=== PATIENT | male | born 1985 | race Caucasian/White ===

== ENCOUNTER 2017-02-23 14:49 | Inpatient (IN) | payer MEDICAID ==
[~2017-02-23] VITALS: Ht 185.4 cm; Wt 128.1 kg
[2017-02-23 15:38] LABS: Basophils # (auto) 0 uL; Basophils % (auto) 0.3 % (0.0-2.0); CONDITION Y; Eosinophils # (auto) 0 uL; Eosinophils % (auto) 0.4 % (0.0-7.0); Hematocrit 47.8 % (41.0-53.0); Lymphocytes # (auto) 1.3 uL; Lymphocytes % (auto) 16.1 % (10.0-50.0); Mean Corpuscular Hemoglobin 28.4 pg (28.0-32.0); Mean Corpuscular Hgb Conc. 33.5 g/dL (32.0-36.0); Mean Corpuscular Volume 84.6 fL (80.0-100.0); Mean Platelet Volume 8.8 fL (7.4-10.4); Monocytes # (auto) 0.5 uL; Neutrophils % (auto) 76.2 % (37.0-80.0); Platelet Count (auto) 358 10^3/uL (140-450); Red Cell Distribution Width 16.4 % (11.6-16.0); White Blood Cell 7.9 10^3/uL (4.4-10.8)
[2017-02-23 15:53] LABS: Albumin 4.1 g/dL (3.4-5.0); BUN/Creatinine Ratio 10.5; Bilirubin, Total 14.5 mg/dL (0.2-1.0); Calcium 9.4 mg/dL (8.5-10.1); Potassium 3.4 mmol/L (3.5-5.1); Total Protein 8.4 g/dL (6.4-8.2)
[2017-02-23 15:55] LABS: Urine Color Brown (Yellow); Urine Glucose Normal (Normal); Urine Mucus FEW (None Seen); Urine Nitrite Negative (Negative); Urine RBC 6 /hpf (0 - 3); Urine Squamous Epithelial Cell FEW /hpf (<5); Urine Urobilinogen Normal (Negative)
[2017-02-23 15:59] LABS: Urine Blood 1+ /uL (Negative); Urine Ketone 1+ (Negative)
[2017-02-23 16:02] LABS: Urine Bilirubin 2+ (Negative)
[2017-02-23 19:47] LABS: Magnesium 2.5 mg/dL (1.6-2.6)
[2017-02-23] MEDS ORDERED: ACETAMINOPHEN 325 MG TAB PO PRN (21:30)
[2017-02-23] MEDS ORDERED: ONDANSETRON HCL 4 MG/2 ML VIAL IV PRN (21:30)
[2017-02-23] MEDS ORDERED: PANTOPRAZOLE SODIUM 40 MG/10 ML VIAL IV ONE (21:30)
[2017-02-23] MEDS ORDERED: HYDROcodone-ACET 5/325MG TAB PO PRN (21:30)
[2017-02-23] MEDS ORDERED: TEMAZEPAM 15 MG CAP PO PRN (21:30)
[2017-02-23] MEDS: SODIUM CHLORIDE 0.9% 1,000 ML IV SCH (21:45)
[2017-02-23 23:35] VITALS: BP 127/74
[2017-02-24 05:15] VITALS: BP 110/68
[2017-02-24 06:19] LABS: Basophils # (auto) 0 uL; Basophils % (auto) 0.3 % (0.0-2.0); CONDITION Y; Eosinophils # (auto) 0 uL; Eosinophils % (auto) 0.6 % (0.0-7.0); Hematocrit 44.5 % (41.0-53.0); Lymphocytes # (auto) 1.9 uL; Lymphocytes % (auto) 24.9 % (10.0-50.0); Mean Corpuscular Hemoglobin 28.4 pg (28.0-32.0); Mean Corpuscular Hgb Conc. 33.8 g/dL (32.0-36.0); Mean Corpuscular Volume 84.2 fL (80.0-100.0); Mean Platelet Volume 9.2 fL (7.4-10.4); Monocytes # (auto) 0.6 uL; Monocytes % (auto) 8.5 % (0.0-12.0); Neutrophils # (auto) 4.9 uL; Neutrophils % (auto) 65.7 % (37.0-80.0); Platelet Count (auto) 340 10^3/uL (140-450); Red Cell Distribution Width 16.8 % (11.6-16.0); White Blood Cell 7.5 10^3/uL (4.4-10.8)
[2017-02-24 06:56] LABS: Albumin 3.6 g/dL (3.4-5.0); BUN/Creatinine Ratio 13.7; Bilirubin, Total 13.7 mg/dL (0.2-1.0); Calcium 9.1 mg/dL (8.5-10.1); Potassium 3.7 mmol/L (3.5-5.1); Total Protein 7.5 g/dL (6.4-8.2)
[2017-02-24] MEDS: PANTOPRAZOLE SODIUM 40 MG/10 ML VIAL IV SCH (09:23)
[2017-02-24] MEDS: SODIUM CHLORIDE 0.9% 1,000 ML IV SCH (09:23)
[2017-02-24 10:03] VITALS: BP 110/66
[2017-02-24 12:01] VITALS: BP 113/67
[2017-02-24 17:14] VITALS: BP 124/68
[2017-02-25 00:24] VITALS: BP 108/84
[2017-02-25 05:22] VITALS: BP 113/62
[2017-02-25] MEDS: SODIUM CHLORIDE 0.9% 1,000 ML IV SCH ×2 (06:00→10:50)
[2017-02-25 08:05] LABS: Albumin 3.3 g/dL (3.4-5.0); Bilirubin, Total 14.4 mg/dL (0.2-1.0); Calcium 9.4 mg/dL (8.5-10.1); Potassium 4.2 mmol/L (3.5-5.1)
[2017-02-25 09:07] VITALS: BP 112/64
[2017-02-25] MEDS: PANTOPRAZOLE SODIUM 40 MG/10 ML VIAL IV SCH (09:13)
[2017-02-25 13:00] VITALS: BP 130/63
[2017-02-25 17:00] VITALS: BP 120/67
[2017-02-25 21:30] VITALS: BP 105/64
[2017-02-26] MEDS: SODIUM CHLORIDE 0.9% 1,000 ML IV SCH ×2 (00:39→11:50)
[2017-02-26 05:00] VITALS: BP 110/64
[2017-02-26 08:00] VITALS: BP 111/59
[2017-02-26] MEDS: PANTOPRAZOLE SODIUM 40 MG/10 ML VIAL IV SCH (10:00)
[2017-02-26 14:50] VITALS: BP 129/55
[2017-02-26 16:45] VITALS: BP 123/63
[2017-02-26 22:00] VITALS: BP 119/70
[2017-02-27] MEDS: SODIUM CHLORIDE 0.9% 1,000 ML IV SCH ×2 (00:20→02:05)
[2017-02-27 05:00] VITALS: BP 106/48
[2017-02-27 09:00] VITALS: BP 119/57
[2017-02-27] MEDS ORDERED: PANTOPRAZOLE 40 MG TAB PO SCH (10:00)
[2017-02-27 13:00] VITALS: BP 117/61
[2017-02-27 14:10] VITALS: BP 119/57
== END 2017-02-27 16:15 | disposition home or self-care (01) ==
LOC: ER 14:52 → OVERFLOW 14:53 → WEST WING 23:36
PROVIDERS: ADMIT Nurse Practitioner; ATTEND Internal Medicine Pulmonary Disease
DX: K80.71 Calculus of gallbladder and bile duct without cholecystitis with obstruction (principal); R17 Unspecified jaundice; Z82.49 Family history of ischemic heart disease and other diseases of the circulatory system; Z83.3 Family history of diabetes mellitus; Z71.89 Other specified counseling
CPT/HCPCS: 36415; 71010; 74176; 74181; 78226; 80053; 80074; 80307; 80320; 81001; 82150; 82962; 83690; 83735; 85025; 87040; 94761; 96374; C9113